=== PATIENT | female | born 1955 | race Caucasian/White ===

== ENCOUNTER → 2016-07-23 | Outpatient (CLI) | payer OTHER ==
[~2016-07-23] MED LIST: ANAPROX DS550 M1 PO; ANTIVERT25 MG PO; ASPIR 8181 M1 PO; ASPIRIN EC325 MG PO; ASPIRIN81 M1 PO; BACTRIM,SEPT1 TABLET PO; BUPROPION XL150 MG PO; BUPROPION XL300 MG PO; CALCIUM + D3 E1 EACH PO; CALCIUM 600 +1 EACH PO; CALCIUM600 MG PO; CELEBREX200 MG PO; CELECOXIB200 MG PO; CELEXA40 MG PO; CLINDAMYCIN HC300 MG PO; DIABETA2.5 MG PO; DOK PLUS TABLE1 EACH PO; DOXYCYCLINE HY100 MG PO; FLEXERIL10 MG PO; FLONASE16 GM NS; FLUOXETINE HCL20 MG PO; GLUCOPHAGE1000 MG PO; GLYBURIDE2.5 MG PO; GLYBURIDE5 MG PO; HYDROCODON-ACE1 EAC7 PO; HYDROCODONE-AP1 EA11 PO; KEFLEX500 MG PO; LAMICTAL200 MG PO; LEXAPRO20 MG PO; LISINOPRIL5 MG PO; LO-DOSE ASPIRIN81 M1 PO; LORTAB 5-500 T1 EACH PO; MECLIZINE HCL25 M3 PO; MELOXICAM15 MG PO; MOBIC15 MG PO; NAPROSYN500 MG PO; NEURONTIN100 MG PO; OMEPRAZOLE40 MG PO; OXYCONTIN10 MG PO; PANTOPRAZOLE SO40 MG PO; PERPHENAZINE4 MG PO; PREDNISONE50 MG PO; PRISTIQ50 MG PO; PROAIR HFA8.5 GM IH; PROTONIX40 MG PO; PROVENTIL,2.5 MG/3 M IH; REGLAN10 MG PO; SEROQUEL100 MG PO; SEROQUEL50 MG PO; SIMVASTATIN40 M1 G-TUBE; ULTRAM50 MG PO; VICODIN 5-3001 EACH PO; VICODIN,LORT1 TABLET PO; VITAMIN D10000 UNIT PO; ZEGERID40 MG PO; ZESTRIL,PRINIVIL5 MG PO
== END | disposition home or self-care (01) ==
DX: R13.10 Dysphagia, unspecified (principal)
CPT/HCPCS: 92611 GN; G8996 GN; G8997 GN; G8998 GN

== ENCOUNTER 2016-08-26 01:34 | Inpatient (IN) | payer OTHER ==
[~2016-08-26] VITALS: Ht 157.5 cm; Wt 108.9 kg
[2016-08-26] VITALS (11 sets, daily range): BP systolic 118–150; BP diastolic 71–99
[2016-08-26 02:09] LABS: ADD MIUA? NO; BILIRUBIN NEGATIVE; BLOOD NEGATIVE; COLOR STRAW ((YELLOW)); GLUCOSE (STRIP) >=500; KETONES 5; LEUKOCYTES NEGATIVE; NITRITE NEGATIVE; PROTEIN (STRIP) NEGATIVE; SPECIFIC GRAVITY 1.023 (1.000-1.030); UCUL ADDED? NO; UROBILINOGEN 0.2 MG/DL (0.2-1.0)
[2016-08-26 02:25] LABS: CHLORIDE 99 mEq/L (99-109); POTASSIUM 4.5 mEq/L (3.7-5.4); SODIUM 132 mEq/L (136-147)
[2016-08-26 02:27] LABS: GLUCOSE 587 mg/dL (70-99)
[2016-08-26 02:28] LABS: ANION GAP 15 MEQ/L (2-14)
[2016-08-26 02:30] LABS: GFR ESTIMATE (CALCULATED) 41 mL/min/
[2016-08-26 02:31] LABS: UREA NITROGEN (BUN) 18 mg/dL (9-23)
[2016-08-26 02:37] LABS: HEMATOCRIT 29.4 % (36.0-46.0); MCH 20.7 PG (29.0-34.0); MCHC 28.9 G/DL (30.0-36.0); MCV 71.5 FL (83-99); MEAN PLAT.VOLUME 10.6 uM^3 (9.5-12.4); PLATELET COUNT 210 K/uL (156-360); RBC DIS.WIDTH-CV 17.4 % (11.8-14.6); RED BLOOD COUNT 4.11 M/uL (3.80-5.20); WHITE BLOOD COUNT 9.6 K/uL (4.1-10.2)
[2016-08-26 02:57] LABS: D-DIMER ELISA 0.47 mg/L FEU (< 0.57)
[2016-08-26 05:08] LABS: IRON 30 MCG/DL (35-150); SAMPLE HEMOLYSIS CHECK 0; SAMPLE ICTERIC CHECK 0; SAMPLE LIPEMIA CHECK 0
[2016-08-26 07:23] LABS: POINT-OF-CARE METER ID UU13113702
[2016-08-26] MEDS ORDERED: CHILD ASPIRIN81 M1 PO (08:20)
[2016-08-26] MEDS ORDERED: HYDROCODON-ACE1 EAC7 PO (08:24)
[2016-08-26] MEDS ORDERED: SIMVASTATIN10 MG PO (08:25)
[2016-08-26] MEDS ORDERED: GLIMEPIRIDE4 MG PO (08:25)
[2016-08-26] MEDS ORDERED: LYRICA75 MG PO (08:25)
[2016-08-26] MEDS ORDERED: TRESIBA FL200 UNIT/1 SC (08:26)
[2016-08-26] MEDS ORDERED: CALCIUM600 M1 PO (08:27)
[2016-08-26 08:34] LABS: FERRITIN 7 NG/ML (10-291)
[2016-08-26 10:18] LABS: POINT-OF-CARE METER ID UU13113778; POINT-OF-CARE USER ID 611181312
[2016-08-26 10:18] LABS: POINT-OF-CARE METER ID UU13113778; POINT-OF-CARE USER ID 611181312
[2016-08-26 11:22] LABS: POINT-OF-CARE METER ID UU13113702
[2016-08-26 12:36] LABS: TROP-I INTERPRETATION NEGATIVE; TROPONIN-I < 0.01 ng/mL (0.0-0.30)
[2016-08-26 14:26] LABS: POINT-OF-CARE METER ID UU13113702
[2016-08-26 16:59] LABS: POINT-OF-CARE METER ID UU13113702
[2016-08-26 18:37] LABS: TROP-I INTERPRETATION NEGATIVE; TROPONIN-I < 0.01 ng/mL (0.0-0.30)
[2016-08-26 21:38] LABS: POINT-OF-CARE METER ID UU14162508
[2016-08-27] VITALS: BP 121/71
[2016-08-27 00:42] LABS: TROP-I INTERPRETATION NEGATIVE; TROPONIN-I < 0.01 ng/mL (0.0-0.30)
[2016-08-27 04:44] VITALS: BP 124/76
[2016-08-27 07:16] LABS: POINT-OF-CARE METER ID UU14162508
[2016-08-27 07:50] LABS: EOSINOPHIL (%) 1.5 % (0-5); EOSINOPHIL COUNT 0.1 K/uL (0-0.3); HEMATOCRIT 32.4 % (36.0-46.0); IMMATURE GRANULOCYTE (%) 0.5 % (0.0-0.7); INSTRUMENT ABS NEUTROPHIL CT 4.8 K/uL; LYMPHOCYTE COUNT 2.7 K/uL (1.0-2.8); MCH 21.5 PG (29.0-34.0); MONOCYTE (%) 6.1 % (3-12); MONOCYTE COUNT 0.5 K/uL (0-0.8); NEUTROPHIL (%) 58.4 % (45-76); NEUTROPHIL COUNT 4.8 K/uL (1.8-6.4); PLATELET COUNT 189 K/uL (156-360); RBC DIS.WIDTH-CV 18.1 % (11.8-14.6); RBC DIS.WIDTH-SD 47.8 % (39-53); RED BLOOD COUNT 4.38 M/uL (3.80-5.20); WHITE BLOOD COUNT 8.2 K/uL (4.1-10.2)
[2016-08-27 07:56] VITALS: BP 138/88
[2016-08-27 07:59] LABS: ANION GAP 9 MEQ/L (2-14); CHLORIDE 104 MEQ/L (99-109); GFR ESTIMATE (CALCULATED) > 59 mL/min/; POTASSIUM 3.9 MEQ/L (3.7-5.4); SAMPLE HEMOLYSIS CHECK 0; SAMPLE ICTERIC CHECK 0; SAMPLE LIPEMIA CHECK 0; UREA NITROGEN (BUN) 18 mg/dL (9-23)
[2016-08-27 08:01] LABS: GLUCOSE 147 mg/dL (70-99); SODIUM 140 MEQ/L (136-147)
[2016-08-27 10:09] LABS: Estimated Average Glucose 171 mg/dL (70-123); HEMOGLOBIN A1c (GLYCOHEMOGLOB) 7.6 % HGB (Below 5.7)
[2016-08-27 10:58] VITALS: BP 107/66
[2016-08-27 11:54] LABS: POINT-OF-CARE METER ID UU14162508
[2016-08-27 12:39] LABS: POC NON-PRINT COM 1 ND
[2016-08-27 19:38] VITALS: BP 115/64
[2016-08-27 23:21] VITALS: BP 116/64
[2016-08-28 04:10] VITALS: BP 96/54
[2016-08-28 07:42] LABS: EOSINOPHIL (%) 2.3 % (0-5); EOSINOPHIL COUNT 0.2 K/uL (0-0.3); HEMATOCRIT 34.5 % (36.0-46.0); IMMATURE GRANULOCYTE (%) 0.4 % (0.0-0.7); INSTRUMENT ABS NEUTROPHIL CT 4.3 K/uL; LYMPHOCYTE COUNT 2.3 K/uL (1.0-2.8); MCH 21.6 PG (29.0-34.0); MCHC 29.9 G/DL (30.0-36.0); MCV 72.5 FL (83-99); MEAN PLAT.VOLUME 10.4 uM^3 (9.5-12.4); MONOCYTE COUNT 0.5 K/uL (0-0.8); NEUTROPHIL COUNT 4.3 K/uL (1.8-6.4); PLATELET COUNT 193 K/uL (156-360); RBC DIS.WIDTH-CV 17.9 % (11.8-14.6); RBC DIS.WIDTH-SD 47.2 % (39-53); RED BLOOD COUNT 4.76 M/uL (3.80-5.20); WHITE BLOOD COUNT 7.3 K/uL (4.1-10.2)
[2016-08-28 08:08] LABS: ANION GAP 11 MEQ/L (2-14); CHLORIDE 99 MEQ/L (99-109); GFR ESTIMATE (CALCULATED) > 59 mL/min/; GLUCOSE 224 mg/dL (70-99); POTASSIUM 4.3 MEQ/L (3.7-5.4); SAMPLE HEMOLYSIS CHECK 0; SAMPLE ICTERIC CHECK 0; SAMPLE LIPEMIA CHECK 0; SODIUM 139 MEQ/L (136-147); UREA NITROGEN (BUN) 17 mg/dL (9-23)
[2016-08-28 08:19] VITALS: BP 112/72
[2016-08-28 10:53] VITALS: BP 119/71
[2016-08-31 10:29] LABS: POC NON-PRINT COM 1 ND
== END 2016-08-28 14:05 | disposition home or self-care (01) | DRG 812 ==
LOC: EME 01:34 → EDOF 06:51 → 2EAST 06:51 → EDOF 07:30 → 2EAST 18:42
PROVIDERS: Hospitalist; Physician Assistant; Student in an Organized Health Care Education/Training Program
PROC: 5A09457 Assistance with Respiratory Ventilation, 24-96 Consecutive Hours, Continuous Positive Airway Pressure (ICD-10-PCS; principal; 2016-08-26)
PROC: 30233N1 Transfusion of Nonautologous Red Blood Cells into Peripheral Vein, Percutaneous Approach (ICD-10-PCS; 2016-08-26)
DX: D64.9 Anemia, unspecified (principal); Z68.41 Body mass index [BMI] 40.0-44.9, adult; F33.9 Major depressive disorder, recurrent, unspecified; E11.65 Type 2 diabetes mellitus with hyperglycemia; K21.9 Gastro-esophageal reflux disease without esophagitis; K59.00 Constipation, unspecified; J45.909 Unspecified asthma, uncomplicated; F41.9 Anxiety disorder, unspecified; G47.33 Obstructive sleep apnea (adult) (pediatric); I49.9 Cardiac arrhythmia, unspecified; E86.0 Dehydration; E66.01 Morbid (severe) obesity due to excess calories; Z88.1 Allergy status to other antibiotic agents; Z88.5 Allergy status to narcotic agent; Z79.4 Long term (current) use of insulin; Z79.84 Long term (current) use of oral hypoglycemic drugs; Z79.82 Long term (current) use of aspirin; Z87.891 Personal history of nicotine dependence
CPT/HCPCS: 71020; 80048; 81003; 82010; 82272; 82607; 82728; 82746; 82948; 83036; 83540; 84443; 84466; 84484; 85025; 85027; 85379; 86850; 86900; 86901; 86920; 93005; 99202; 99281; 99285; J1650; J1815; J7030; P9016

== ENCOUNTER 2016-12-29 22:43 | Emergency (ER) | payer OTHER ==
[~2016-12-29] VITALS: Ht 157.5 cm; Wt 116.1 kg
[~2016-12-29 22:43] MED LIST changes: +CALCIUM600 M1 PO; +CHILD ASPIRIN81 M1 PO; +GLIMEPIRIDE4 MG PO; +LYRICA75 MG PO; +SIMVASTATIN10 MG PO; +TRESIBA FL200 UNIT/1 SC
[2016-12-29 23:21] LABS: EOSINOPHIL (%) 0 % (0-5); HEMATOCRIT 33.9 % (36.0-46.0); IMMATURE GRANULOCYTE COUNT 0.1 K/uL; INSTRUMENT ABS NEUTROPHIL CT 9.4 K/uL; LYMPHOCYTE COUNT 0.9 K/uL (1.0-2.8); MCH 23.4 PG (29.0-34.0); MCHC 30.4 G/DL (30.0-36.0); MEAN PLAT.VOLUME 10.7 uM^3 (9.5-12.4); MONOCYTE (%) 2.5 % (3-12); MONOCYTE COUNT 0.3 K/uL (0-0.8); NEUTROPHIL (%) 87.9 % (45-76); NEUTROPHIL COUNT 9.4 K/uL (1.8-6.4); PLATELET COUNT 186 K/uL (156-360); RBC DIS.WIDTH-CV 16.2 % (11.8-14.6); RBC DIS.WIDTH-SD 45.1 % (39-53); WHITE BLOOD COUNT 10.7 K/uL (4.1-10.2)
[2016-12-29 23:26] LABS: CARBON DIOXIDE (BICARBONATE) 24.3 MEQ/L (20-31)
[2016-12-29 23:29] LABS: CHLORIDE 100 mEq/L (99-109); POTASSIUM 4.5 mEq/L (3.7-5.4); SODIUM 135 mEq/L (136-147)
[2016-12-29 23:33] LABS: ANION GAP 15 MEQ/L (2-14); TOTAL BILIRUBIN 0.4 mg/dL (0.0-1.0)
[2016-12-29 23:35] LABS: ALKALINE PHOSPHATASE 205 IU/L (3-129); GFR ESTIMATE (CALCULATED) 45 mL/min/
[2016-12-29 23:36] LABS: UREA NITROGEN (BUN) 16 mg/dL (9-23)
[2016-12-29 23:37] LABS: DIRECT BILIRUBIN 0.2 mg/dL (0.0-0.3)
[2016-12-29 23:38] LABS: LIPASE 32 U/L (1.0-51.0)
[2016-12-29 23:53] LABS: GLUCOSE 462 mg/dL (70-99)
[2016-12-30 00:22] LABS: ADD MIUA? NO; BILIRUBIN NEGATIVE; BLOOD NEGATIVE; COLOR STRAW ((YELLOW)); GLUCOSE (STRIP) >=500; KETONES 5; LEUKOCYTES NEGATIVE; NITRITE NEGATIVE; PROTEIN (STRIP) NEGATIVE; SPECIFIC GRAVITY 1.018 (1.000-1.030); UCUL ADDED? NO; UROBILINOGEN 0.2 MG/DL (0.2-1.0)
[2016-12-30 00:30] LABS: AMPHETAMINE NEGATIVE (500 ng/mL); BARBITURATES NEGATIVE (200 ng/mL); BENZODIAZEPINES NEGATIVE (150 ng/mL); COCAINE NEGATIVE (150 ng/mL); INTERNAL CONTROLS VALID? YES; METHADONE NEGATIVE (200 ng/mL); METHAMPHETAMINE NEGATIVE (500 ng/mL); OPIATES (MORPHINE) PRESUMPTIVE POSITIVE (100 ng/mL); OXYCODONE NEGATIVE (100 ng/mL); PHENCYCLIDINE NEGATIVE (25 ng/mL); PROPOXYPHENE NEGATIVE (300 ng/mL); THC CANNABINOIDS NEGATIVE (50 ng/mL); TRICYCLIC ANTIDEPRESSANTS PRESUMPTIVE POSITIVE (300 ng/mL)
[2016-12-30 00:31] LABS: ADD MEDTOX COMMENT Y
[2016-12-30 00:37] LABS: POINT-OF-CARE METER ID UU13113702
[2016-12-30 01:27] LABS: POINT-OF-CARE METER ID UU13113702
[2016-12-30 01:38] VITALS: BP 127/68
[2016-12-30 03:29] LABS: OPIATES QUANTITATIVE VALUE 0 NG/ML
[2016-12-30 12:31] LABS: POINT-OF-CARE METER ID UU13113778; POINT-OF-CARE USER ID NUTMMM10
== END 2016-12-30 01:39 | disposition home or self-care (01) ==
LOC: EME 22:43
PROVIDERS: Emergency Medicine
DX: E11.65 Type 2 diabetes mellitus with hyperglycemia (principal); Z79.4 Long term (current) use of insulin; I10 Essential (primary) hypertension; J45.909 Unspecified asthma, uncomplicated; K21.9 Gastro-esophageal reflux disease without esophagitis; F32.9 Major depressive disorder, single episode, unspecified; K44.9 Diaphragmatic hernia without obstruction or gangrene; Z96.652 Presence of left artificial knee joint; Z87.891 Personal history of nicotine dependence
CPT/HCPCS: 80048; 80076; 81003; 82803; 82948; 83690; 84999; 85025; 99281; 99285; J7030

== ENCOUNTER 2017-03-25 19:27 | Emergency (ER) | payer OTHER ==
[~2017-03-25] VITALS: Ht 157.5 cm; Wt 116.6 kg
[2017-03-25 19:49] VITALS: BP 121/86
== END 2017-03-25 22:49 | disposition home or self-care (01) ==
LOC: EME 19:27
DX: M26.621 Arthralgia of right temporomandibular joint (principal); H92.01 Otalgia, right ear; I10 Essential (primary) hypertension; E11.9 Type 2 diabetes mellitus without complications; Z79.4 Long term (current) use of insulin; Z79.82 Long term (current) use of aspirin; Z87.891 Personal history of nicotine dependence
CPT/HCPCS: 99281; 99283

== ENCOUNTER 2017-06-15 20:04 | Emergency (ER) | payer OTHER ==
[~2017-06-15] VITALS: Ht 157.5 cm; Wt 116.0 kg
[2017-06-15 21:04] LABS: HEMATOCRIT 34.6 % (36.0-46.0); HEMOGLOBIN 10.5 G/DL (11.9-15.5); MCH 23.3 PG (29.0-34.0); MCHC 30.3 G/DL (30.0-36.0); MCV 76.9 FL (83-99); PLATELET COUNT 192 K/uL (156-360); RBC DIS.WIDTH-CV 16.3 % (11.8-14.6); RBC DIS.WIDTH-SD 45.4 % (39-53)
[2017-06-15 21:12] LABS: CHLORIDE 103 mEq/L (99-109); POTASSIUM 4.5 mEq/L (3.7-5.4); SODIUM 136 mEq/L (136-147)
[2017-06-15 21:14] LABS: GLUCOSE 187 mg/dL (70-99)
[2017-06-15 21:18] LABS: CREATININE 1.5 mg/dL (0.6-1.3); GFR ESTIMATE (CALCULATED) 38 mL/min/; UREA NITROGEN (BUN) 18 mg/dL (9-23)
[2017-06-15] MEDS ORDERED: PROVENTIL HFA6.7 GM IH (23:26)
[2017-06-15] MEDS ORDERED: TESSALON200 MG PO (23:26)
[2017-06-15] MEDS ORDERED: PREDNISONE50 MG PO (23:27)
[2017-06-16 00:02] VITALS: BP 156/81
== END 2017-06-16 00:02 | disposition home or self-care (01) ==
LOC: EME 20:04
DX: J20.9 Acute bronchitis, unspecified (principal); B34.9 Viral infection, unspecified; J45.909 Unspecified asthma, uncomplicated; E11.9 Type 2 diabetes mellitus without complications; Z79.84 Long term (current) use of oral hypoglycemic drugs; Z87.891 Personal history of nicotine dependence; I10 Essential (primary) hypertension; K21.9 Gastro-esophageal reflux disease without esophagitis; Z79.82 Long term (current) use of aspirin; F32.9 Major depressive disorder, single episode, unspecified; F41.9 Anxiety disorder, unspecified; Z96.652 Presence of left artificial knee joint; Z88.2 Allergy status to sulfonamides; Z88.6 Allergy status to analgesic agent
CPT/HCPCS: 71046; 80048; 85027; 87502; 87651 90; 94640; 99281; 99284

== ENCOUNTER 2017-07-01 17:39 | Emergency (ER) | payer OTHER ==
[~2017-07-01] VITALS: Ht 157.5 cm; Wt 119.2 kg
[~2017-07-01 17:39] MED LIST changes: +PROVENTIL HFA6.7 GM IH; +TESSALON200 MG PO
[2017-07-01 18:23] LABS: HEMATOCRIT 34.2 % (36.0-46.0); HEMOGLOBIN 10.4 G/DL (11.9-15.5); MCH 23.4 PG (29.0-34.0); MCHC 30.4 G/DL (30.0-36.0); PLATELET COUNT 165 K/uL (156-360); RBC DIS.WIDTH-CV 16.7 % (11.8-14.6); RBC DIS.WIDTH-SD 46.3 % (39-53); RED BLOOD COUNT 4.44 M/uL (3.80-5.20); WHITE BLOOD COUNT 7.9 K/uL (4.1-10.2)
[2017-07-01 18:31] LABS: CHLORIDE 102 mEq/L (99-109); POTASSIUM 4.1 mEq/L (3.7-5.4); SODIUM 137 mEq/L (136-147)
[2017-07-01 18:33] LABS: GLUCOSE 269 mg/dL (70-99)
[2017-07-01 18:37] LABS: GFR ESTIMATE (CALCULATED) > 59 mL/min/
[2017-07-01 18:38] LABS: UREA NITROGEN (BUN) 12 mg/dL (9-23)
[2017-07-01] MEDS ORDERED: TESSALON PERLE100 MG PO (19:10)
[2017-07-01] MEDS ORDERED: LIDODERM 5% P1 PATCH TD (19:10)
[2017-07-01 19:17] VITALS: BP 135/76
== END 2017-07-01 19:18 | disposition home or self-care (01) ==
LOC: EME 17:39 → EXP 17:39
DX: R07.89 Other chest pain (principal); E11.65 Type 2 diabetes mellitus with hyperglycemia; J45.909 Unspecified asthma, uncomplicated; F32.9 Major depressive disorder, single episode, unspecified; I10 Essential (primary) hypertension; K21.9 Gastro-esophageal reflux disease without esophagitis; F41.9 Anxiety disorder, unspecified; Z87.891 Personal history of nicotine dependence; Z79.84 Long term (current) use of oral hypoglycemic drugs; Z79.891 Long term (current) use of opiate analgesic; Z79.82 Long term (current) use of aspirin; Z88.8 Allergy status to other drugs, medicaments and biological substances; Z88.2 Allergy status to sulfonamides; Z79.4 Long term (current) use of insulin; G56.03 Carpal tunnel syndrome, bilateral upper limbs; Z96.652 Presence of left artificial knee joint
CPT/HCPCS: 71046; 80048; 85027; 99281; 99283